=== PATIENT | female | born 1965 | race Caucasian/White ===

== ENCOUNTER 2022-02-16 12:00 | Emergency (ER) | payer BC | END 2022-02-16 14:30 | disposition left against medical advice (07) | LOC: CSHERS 12:00 | DX: Z53.21 Procedure and treatment not carried out due to patient leaving prior to being seen by health care provider (principal) ==

== ENCOUNTER 2022-10-30 09:32 | Outpatient (CLI) | payer BC ==
[2022-10-30] MEDS ORDERED: Lidocaine 1% PF 5 ML VIAL ONE ×2 (09:46→10:05)
[2022-10-30] MEDS ORDERED: Sodium Bicarbonate 2.5 MEQ/5 ML VIAL ONE ×2 (09:46→10:04)
[2022-10-30] MEDS ORDERED: Iopamidol-M 300 61% 15 ML VIAL ONE (09:52)
[2022-10-30 11:23] VITALS: BP 150/86; TEMP 98.8
== END 2022-10-30 12:10 | disposition home or self-care (01) ==
LOC: CSHRAD 09:32
PROVIDERS: ATTEND Neurological Surgery
DX: M50.30 Other cervical disc degeneration, unspecified cervical region (principal); Z98.890 Other specified postprocedural states; M50.022 Cervical disc disorder at C5-C6 level with myelopathy; M47.12 Other spondylosis with myelopathy, cervical region
CPT/HCPCS: 62302; 72126; Q9967

== ENCOUNTER 2023-02-17 08:43 | Outpatient (CLI) | payer BC | END 2023-02-17 08:44 | disposition home or self-care (01) | LOC: CSHRAD 08:43 | PROVIDERS: ATTEND Neurological Surgery | DX: M54.12 Radiculopathy, cervical region (principal); Z98.1 Arthrodesis status | CPT/HCPCS: 72040 ==

== ENCOUNTER 2023-04-27 14:55 | Outpatient (CLI) | payer BC | END 2023-04-27 14:56 | disposition home or self-care (01) | LOC: CSHMAMMO 14:55 | PROVIDERS: ATTEND Specialist | DX: Z12.31 Encounter for screening mammogram for malignant neoplasm of breast (principal); Z80.3 Family history of malignant neoplasm of breast; Z91.89 Other specified personal risk factors, not elsewhere classified | CPT/HCPCS: 77063; 77067 ==

== ENCOUNTER 2023-05-06 13:18 | Outpatient (CLI) | payer BC | END 2023-05-06 13:19 | disposition home or self-care (01) | LOC: CSHRAD 13:18 | PROVIDERS: ATTEND Neurological Surgery | DX: M47.22 Other spondylosis with radiculopathy, cervical region (principal); Z98.890 Other specified postprocedural states | CPT/HCPCS: 72040 ==

== ENCOUNTER 2023-07-22 09:08 | Outpatient (CLI) | payer BC | END 2023-07-22 09:09 | disposition home or self-care (01) | LOC: CSHRAD 09:08 | PROVIDERS: ATTEND Neurological Surgery | DX: M54.12 Radiculopathy, cervical region (principal); Z98.890 Other specified postprocedural states | CPT/HCPCS: 72040 ==